=== PATIENT | female | born 1965 | race Caucasian/White ===

== ENCOUNTER → 2016-08-26 | Outpatient (CLI) | payer OTHER ==
--- NOTE | 2016-08-26 19:56 | KCIC ---
Bilateral digital screening mammograms with CAD: HISTORY Routine screening. COMPARISON Comparison is made to previous studies dated 07/31/2015 and 02/14/2013. FINDINGS Breast density category B. The skin and nipples show no abnormalities. No abnormal lymph nodes are seen in the axilla. The breast parenchyma shows scattered fibroglandular density. There are no dominant masses, suspicious calcifications or architectural distortions. IMPRESSION No evidence of malignancy. Recommend routine annual mammographic screening. This study was interpreted with the benefit of Computerized Aided Detection (CAD). Mammography is not 100% sensitive in detecting breast cancer. Therefore, a self breast exam and a clinical breast exam are very important. A negative mammogram does not negate a clinically suspicious finding and should not result in a delay in biopsying a clinically suspicious abnormality. BI-RADS category 1. Negative. This patient's information has been entered into a reminder system for the patient to be notified with the results of this examination and a target date for her next mammograms. Electronically signed by: Krista Gallo MD (Aug 26, 2016 19:54:01)
== END | disposition home or self-care (01) ==
LOC: KCIC MAMMO 15:33
PROVIDERS: ATTEND Family Medicine
DX: Z12.31 Encounter for screening mammogram for malignant neoplasm of breast (principal)
CPT/HCPCS: G0202; 77067

== ENCOUNTER → 2017-09-18 | Outpatient (CLI) | payer OTHER | END | disposition home or self-care (01) | LOC: KCIC MAMMO 17:21 | DX: Z12.31 Encounter for screening mammogram for malignant neoplasm of breast (principal) | CPT/HCPCS: 77067 ==

== ENCOUNTER → 2018-08-16 | Outpatient (CLI) | payer OTHER ==
--- NOTE | 2018-08-16 16:46 | KCIC ---
Lumbar spine, 5 views, 08/16/2018: HISTORY: Back pain, sports injury The lumbar vertebral heights are well-maintained. There is mild narrowing of the L5-S1 and L1-2 disc spaces. There are mild scattered marginal spurs. There are mild degenerative changes involving scattered facet joints. No fracture or subluxation is evident. A coarse pelvic calcifications on the left may be related to uterine fibroid. IMPRESSION: 1. Mild to moderate scattered degenerative changes. 2. No acute bony abnormality is detected. Thoracic spine, 2 views, 08/16/2018: The thoracic vertebral heights are well-maintained. There is a slight upper thoracic scoliosis. No fracture or subluxation is evident. There are mild scattered marginal spurs. The paraspinous soft tissues are unremarkable. IMPRESSION: 1. Mild scattered marginal spurring. 2. No acute abnormality is detected. Electronically signed by: Vinod Wright MD (08/16/2018 4:43 PM) [facility]
== END | disposition home or self-care (01) ==
LOC: KCIC 15:28
PROVIDERS: ATTEND Physician Assistant Medical
DX: M47.896 Other spondylosis, lumbar region (principal); M48.07 Spinal stenosis, lumbosacral region; M48.061 Spinal stenosis, lumbar region without neurogenic claudication
CPT/HCPCS: 72072; 72110

== ENCOUNTER → 2021-06-03 | Outpatient (CLI) | payer OTHER ==
--- NOTE | 2021-06-03 12:57 | KCIC ---
Bilateral digital screening mammograms with 3-D tomosynthesis: Reason for examination: Routine screening. Comparison is made to previous studies dated back to 07/31/2015. Bilateral mammograms in CC and oblique projections were obtained with 2-D imaging and 3-D tomosynthes is imaging on a Siemens Inspiration unit and reviewed on the workstation. Interpretation was made wit h the benefit of CAD. The skin and nipples show no abnormalities. No abnormal axillary lymph nodes are seen. The breast par enchyma shows scattered fatty and fibroglandular density. (Breast density: Category B.) There appear to be small nodular parenchymal densities in the 3:00 to 5:00 B position of the left breast approxima tely 5 to 6 cm posterior to the nipple. There also appears to be a small nodular density in the subar eolar 9:00 position of the left breast measuring 5.3 mm in size. These may represent small cystic and fibrocystic lesions but recommend further evaluation with ultrasound. There are no other dominant ma sses, suspicious calcifications or architectural distortion. Impression: Small nodular parenchymal densities at the 3:00 to 4:00 B position of the left breast. Small 5.3 mm n odule in the subareolar 9:00 position of the left breast. Recommend further evaluation with ultrasoun d. BI-RADS Category 0: Incomplete. "Our facility is accredited by the [employer] Mammography Program." This patient's information has been entered into a reminder system for the patient to be notified wit h the results of her examination and a target date for the next mammogram. Electronically signed by: Traci Gallo MD (06/03/2021 12:54 PM) [id number]
== END ==
LOC: KCIC 10:40
PROVIDERS: ATTEND Physician Assistant Medical
DX: Z12.31 Encounter for screening mammogram for malignant neoplasm of breast (principal)
CPT/HCPCS: 77063; 77067

== ENCOUNTER → 2021-06-24 | Outpatient (CLI) | payer OTHER ==
--- NOTE | 2021-06-24 14:28 | KCIC ---
Left breast ultrasound: Reason nodular densities on screening mammogram. Comparison is made to mammographic exam dated 06/03/2021. Left whole breast ultrasound including evaluation of all 4 quadrants and the retroareolar and axillar y regions of the left breast was performed. At the 2:30 position 4 cm from the nipple, there is a 4.5 mm hypoechoic circumscribed nodule with a f ibrocystic appearance. At the 3:00 position 6 cm from the nipple, there is a small hypoechoic lesion with a fibrocystic appearance measuring approximately 4 mm in greatest dimension. At the 3:00 positio n 5 cm from the nipple, there is a 3.6 mm hypoechoic fibrocystic type lesion. At the 4:00 position th ere is a small focus of some minimal fibrocystic change measuring approximately 8.6 mm in size. The r etroareolar 9:00 position, there is a 6.7 mm cystic no abnormal appearing lymph nodes are seen in the left axilla. IMPRESSION: Benign-appearing fibrocystic lesions which are all subcentimeter in size. No suspicious abnormality s een. Recommend 6 month follow-up with ultrasound. BI-RADS Category 3: Probably Benign. "Our facility is accredited by the [employer] Mammography Program." This patient's information has been entered into a reminder system for the patient to be notified wit h the results of her examination and a target date for the next mammogram. Electronically signed by: Traci Gallo MD (06/24/2021 2:26 PM) [email or web address]
== END ==
LOC: KCIC US 12:54
PROVIDERS: ATTEND Family Medicine
DX: N63.11 Unspecified lump in the right breast, upper outer quadrant (principal); N64.89 Other specified disorders of breast
CPT/HCPCS: 76641